=== PATIENT | female | born 1965 | race Caucasian/White ===

== ENCOUNTER 2023-12-22 22:31 | Observation (INO) | payer OTHER, SELFPAY ==
[2023-12-22] VITALS (9 sets, daily range): BP systolic 90–103; BP diastolic 57–67; BMI 18.0
--- NOTE | 2023-12-22 19:52 | ED.GENMED ---
History of Present Illness
General
Chief Complaint: Change Level of Consciousness
Source: patient and records
Exam Limitations: none
Time Seen by Provider: 12/22/23 19:32
Travel History
Have you had any contact with someone who has COVID-19?: Unable to Answer
Do you have any symptoms of coronavirus? Fever > 100 degrees, chills, cough, shortness of breath, sore throat, loss of taste or smell, muscle aches, or headache?: Unable to Answer
History of Present Illness
History of Present Illness:
This is a 58 year old female that is brought in by Ambulance from [facility] with change in mental status. Told that the patient has a fever yesterday and today the patient was more Lethargic. Records state that she was oriented X 1. Patient
denies any fever, chills, chest pain, SOB, abd pain, nausea, vomiting, diarrhea, headache, dizziness, urinary burning.
Past History
Past History
ED Past Medical History: GERD, Hypothyroidism, Psychiatric (Bipolar, Anxiety, Panic disorder) and Other (Wernickes Encephalopathy, Colitis, )
ED Past Surgical History: None
Social History
Tobacco: Non-smoker
Alcohol: None
Personal: Single
Living: prison
Review of Systems
Review of Systems
All Other Systems: ROS reviewed and negative except as documented in HPI and ROS
Constitutional: Reports no symptoms; Denies fever or chills
EENT: Reports no symptoms
Respiratory: Reports no symptoms; Denies cough or trouble breathing
Cardiac: Reports no symptoms; Denies chest pain
ABD/GI: Denies no symptoms, abdominal pain, nausea, vomiting or diarrhea
: Reports no symptoms; Denies dysuria, frequency or urgency
Musculoskeletal: Reports no symptoms
Skin: Reports no symptoms
Neurological: Reports other (Increased lethergy); Denies dizzy or headache
Psychiatric: Reports no symptoms
Phy Exam
General Physical Exam
General Presentation: no apparent distress
General age: appears older than age
General Skin: cool
General Habitus: debilitated
General Mental: alert (patient is alert and will answer questions at a whisper. Able to answer all questions when asked. Aware of being in the hospital)
General Hydration: dry mucous membranes
ENT Exam
ENT Exam: TM's normal, pharynx normal and neck supple
Eye Exam
Eye Exam: EOMI
Cardiovascular Exam
Cardiovascular Exam: regular rate/rhythm and normal peripheral pulses
Pulmonary Exam
Pulmonary Exam: lungs clear, no respiratory distress, no rales, chest non tender, no crackles, no rhonchi, no wheezing and no cough
Gastrointestinal Exam
Gastrointestinal Exam: normal bowel sounds, non tender, soft, no organomegaly, no pulsatile mass and non distended
Musculoskeletal Exam
Musculoskeletal Exam: edema (Slight lower leg edema Nonpitting) and other (Movements slow)
Skin Exam
Skin Exam: normal color, no rash, no petechia and other (Old bruising noted on the left knee and right upper thigh, Cool to touch)
Psychiatric Exam
Psychiatric Exam: other (Patient is awake and will answer questions at a whisper. Follows commands. )
Course
Orders/Labs/Results
Orders:
Orders
12/22/23 19:38
Electrocardiogram (*1) Urgent
Reason for Study: Other
Other Reason for Exam: Possible Sepsis
Cardiac Monitoring- Treatment ONCE
EKG- Treatment ONCE
IV Insert/Care/Rem.- Treatment PRN
CR Chest Portable - 1 View Urgent
Reason For Exam: suspected infection
12/22/23 19:42
COVID-19 Antigen Urgent
Source: Nasal Swab
Complete Blood Count/With Diff Urgent
Comprehensive Metabolic Panel Urgent
Lactic Acid Q4H
Comment: ON ICE, CANCEL 2ND ORDER IF FIRST LACTIC ACID LEVEL <2
Blood Culture Q30M
HALLE Source: Blood/Venous
Specimen Description:
Comment: FROM 2 SEPARATE SITES
Blood Culture Q30M
HALLE Source: Blood/Venous
Specimen Description:
Comment: FROM 2 SEPARATE SITES
INF RAPID [Influenza A+B Rapid Molecular] Urgent
HALLE Source: Nasal Swab
Specimen Description:
12/22/23 19:49
CT Head W/o Iv Contrast Urgent
Comment:
Reason For Exam: cHANGE IN MENTAL STATUS
12/22/23 19:50
Add On- LAB Urgent
Tests Added?: THIAMINE LEVEL
12/22/23 20:01
Urinalysis Reflex To Culture Urgent
Date Specimen was Collected: 12/22/23
Time Specimen was Collected: 19:59
Urine Microscopic Reflex Cult Urgent
Urine Culture Urgent
HALLE Source: U
Specimen Description:
Date Specimen was Collected: 12/22/23
Time Specimen was Collected: 19:59
12/22/23 23:45
Lactic Acid Q4H
Comment: ON ICE, CANCEL 2ND ORDER IF FIRST LACTIC ACID LEVEL <2
Abnormal Lab Results
12/22/23 12/22/23
19:42 20:01
RBC 3.58 L 10^6/uL
(4.20-5.40)
Hgb 11.5 L g/dL
(12.0-16.0)
Hct 33.3 L %
(37.0-47.0)
MCH 32.1 H pg
(27.0-31.0)
Abs Immat Gran (auto) 0.1 H 10^3/uL
(0-0.05)
Absolute Monos (auto) 0.7 H 10^3/uL
(0.1-0.6)
Immature Gran % 1.9 H %
(0-0.5)
Monocytes % 10.4 H %
(1.7-9.3)
BUN 21 H mg/dl
(7-17)
Creatinine 0.4 L mg/dL
(0.6-1.0)
Total Protein 6.1 L g/dl
(6.3-8.2)
Albumin 3.2 L g/dl
(3.5-5.0)
Urine Ketones 1+ A
(Negative)
Urine Urobilinogen 3+ A
(Neg - 1+)
Leukocyte Esterase Rfl 2+ A
(Negative)
Urine WBC (Reflex) 50-60 A /HPF
(0-5)
Urine Bacteria (Reflex) Many A
(Negative)
12/22/23 19:42
12/22/23 19:42
H/H slightly low. Dehydration. Total protein low. Albumin slightly low. Urine positive for infection. Lactic acid normal at 0.7, COVID and Influenza negative.
Vital Signs
Initial and Last Documented VS:
Initial Vital Signs
Temp Pulse Resp Pulse Ox
97.6 F 69 18 95
12/22/23 19:06 12/22/23 19:06 12/22/23 19:06 12/22/23 19:06
Last Documented Vital Signs
Temp Pulse Resp BP Pulse Ox
97.5 F 71 14 99/63 97
12/22/23 20:02 12/22/23 20:00 12/22/23 20:00 12/22/23 20:00 12/22/23 20:05
MDM/Problems Addressed
Differential Diagnosis Includes:
COVID, Influenza. Dehydration. Wernicks encephalopathy
MDM/Problems Addressed:
This nasra 58 year old female that is sent in from [facility] with increased Lethergy. Told that the patient had a fever yesterday but none today but was more lethargic.
Will check labs, Urine, CT head, Give IV fluids
Chronic conditions affecting care:
Wernickes Encephaloopathy
Chronic conditions affecting care: Psychiatric illness
Acute Exacerbation and/or Progression of Chronic Illness: Psychiatric illness and Other (wernicks encephalopathy)
*Radiology
Radiology exam reviewed: radiology read reviewed (Ct HEAD-No acute intracranial abnormality Chest- Small left basilar opacity atelectasis versus mild Pneumonia. )
*Pulse Oximetry
Patient hypoxic: no
*Contract Post Office Clerk Interpretation
Rate: normal
Heart Rate: 70
Rhythm: sinus
*Critical Care Note
Total Time (30-74mins, 75-104mins- exclusive of procedures): Not Applicable
ED Attending Note
-
Portions of this chart may have been created with voice recognition software.� Occasional wrong word or��sound alike� substitutions may have occurred due to the inherent limitations of voice recognition software.
Discharge Plan
Departure
Patient Disposition: Admit
Date of Disposition: 12/22/23
Time of Disposition: 20:57
Admit to: Med/Surg
Presentation/result/management discussed w/ accepting MD/DO: Hospitalist
Patient with high blood pressure during this ER visit?: No
Condition: Good
Covid-19: Negative COVID-19
Discharge Problem:
UTI (urinary tract infection), Left lower lobe pneumonia, Change in mental status
Prescriptions:
No Action
sennosides [senna] 8.6 mg Tablet
8.6 mg PO HS
acetaminophen [Tylenol] 325 mg Tablet
650 mg PO Q4HPRN PRN (Reason: mild pain)
ondansetron HCl [Zofran] 4 mg Tablet
4 mg PO Q8HPRN PRN (Reason: nausea)
clonazepam 0.5 mg Tablet
0.75 mg PO TID
fluoxetine 10 mg Tablet
30 mg PO HS
thiamine HCl (vitamin B1) 100 mg Tablet
100 mg PO DAILY
folic acid 400 mcg Tablet
0.4 mg PO DAILY
carvedilol [Coreg] 3.125 mg Tablet
3.125 mg PO BID
levothyroxine [Synthroid] 25 mcg Tablet
25 mcg PO DAILY
risperidone [Risperdal] 2 mg Tablet
2 mg PO BID
magnesium hydroxide [Milk of Magnesia] 400 mg/5 mL Suspension
2,400 mg PO [id number] PRN (Reason: if no bm by 3rd day)
ascorbic acid (vitamin C) [Vitamin C] 500 mg Tablet
500 mg PO DAILY
bisacodyl [Dulcolax (bisacodyl)] 10 mg Suppository
10 mg AL DAILYPRN PRN (Reason: if no bm aftr mom)
ferrous sulfate 325 mg (65 mg iron) Tablet
325 mg PO DAILY
Fleet Enema 19-7 gram/118 mL Enema
118 ml AL DAILYPRN PRN (Reason: if no bm aftr dulcalox)
docusate sodium [Colace] 100 mg Capsule
200 mg PO HS
lorazepam 1 mg Tablet
1 mg PO Q6HPRN PRN (Reason: anxiety)
divalproex [Depakote Sprinkles] 125 mg Capsule, Delayed Rel Sprinkle
250 mg PO HS
divalproex [Depakote Sprinkles] 125 mg Capsule, Delayed Rel Sprinkle
500 mg PO DAILY
fludrocortisone 0.1 mg Tablet
0.2 mg PO DAILY
levetiracetam [Keppra] 100 mg/mL Solution
500 mg PO BID
melatonin 5 mg Tablet
5 mg PO HS
Icy Hot Pain Relieving 2.5 % Gel
1 applic TOPICAL Q6HPRN PRN (Reason: back)
pyridostigmine bromide 30 mg Tablet
30 mg PO BID
Interventions
Interventions:
*Risk Screen - Suicide Last Done: 12/22/23 19:06
*General Assessment Last Done: 12/22/23 19:06
*Neglect/Abuse Screening Last Done: 12/22/23 19:06
ED- Fall Risk Assessment Last Done: 12/22/23 20:29
*ED COVID-19 Vaccine History Last Done: 12/22/23 19:06
ED- Cardiac Assessment Last Done: 12/22/23 20:05
ED- Neurological Assessment Last Done: 12/22/23 20:05
ED-Psychological Assessment Last Done: 12/22/23 20:05
ED- Pulmonary Assessment Last Done: 12/22/23 20:05
[2023-12-22 19:54] LABS: % Basophils 0.9 % (0-2); % Eosinophils 1.1 % (0-6); % Immature Granulocytes 1.9 % (0-0.5); % Lymphocytes 28.3 % (20.5-51.1); % Monocytes 10.4 % (1.7-9.3); % Neutrophils 57.4 % (42.2-75.2); Absolute Basophils 0.1 10^3/uL (0-0.2); Absolute Eosinophils 0.1 10^3/uL (0-0.7); Absolute Immature Granulocytes 0.1 10^3/uL (0-0.05); Absolute Monocytes 0.7 10^3/uL (0.1-0.6); Hematocrit 33.3 % (37.0-47.0); Hemoglobin 11.5 g/dL (12.0-16.0); Mean Corp Hgb Conc. 34.5 g/dL (33.0-37.0); Mean Corpuscular Hgb 32.1 pg (27.0-31.0); Mean Platelet Volume 10.1 fL (7.4-10.4); Nucleated Red Blood Cells % 0 %; Platelet Count 251 10^3/uL (130-400); Red Blood Cell Count 3.58 10^6/uL (4.20-5.40); Red Cell Dist. Width 12.3 % (11.5-14.5)
[2023-12-22 20:13] LABS: COVID-19 Antigen Negative (Negative)
[2023-12-22 20:13] LABS: Urine Albumin Trace (Neg - Trace); Urine Bilirubin Negative (Negative); Urine Character Clear (Clear); Urine Color Yellow; Urine Glucose Negative (Negative); Urine Ketone 1+ (Negative); Urine Leukocyte 2+ (Negative); Urine Nitrite Negative (Negative); Urine Occult Blood Negative (Negative); Urine Urobilinogen 3+ (Neg - 1+)
[2023-12-22 20:18] LABS: Lactic Acid 0.7 mmol/L (0.7-2.0)
[2023-12-22 20:33] LABS: ALT (SGPT) 20 U/L (0-35); AST (SGOT) 27 U/L (14-36); Albumin 3.2 g/dl (3.5-5.0); Alkaline Phosphatase 77 U/L (38-126); Blood Urea Nitrogen 21 mg/dl (7-17); Calcium 8.9 mg/dl (8.4-10.2); Carbon Dioxide 30 mmol/L (22-30); Chloride 107 mmol/L (98-107); Estimated Creatinine Clearance 77 ml/min; Glucose 83 mg/dl (70-99); Potassium 3.8 mmol/L (3.5-5.1); Sodium 137 mmol/L (135-145); Total Bilirubin 0.6 mg/dl (0.2-1.3); Total Protein 6.1 g/dl (6.3-8.2); eGFR > 60.00
[2023-12-22 20:38] LABS: Urine Bacteria Many (Negative); Urine Red Blood Cell 0-2 /HPF (0-2); Urine White Cell 50-60 /HPF (0-5)
[2023-12-22 20:39] LABS: Urine Squamous Cell 0-2 /LPF (Few)
[2023-12-22] MEDS: ROCEPHIN 1000 MG IV (21:17)
[2023-12-22] MEDS: NSS 1000 IV (21:21)
[2023-12-22] MEDS: ZITHROMAX INFUSION 250 IV (21:21)
--- NOTE | 2023-12-22 22:21 | HPS.HSE ---
Family Physician
-
Family Physician: NOT KNOW UNKNOWN - PT DOES
Chief Complaint
-
altered mental status
History of Present Illness
58-year-old female with past medical history of GERD, hypothyroidism, bipolar/anxiety/panic disorder, Wernicke's encephalopathy, presenting from [facility] for change in mental status. Apparently patient had a fever yesterday and today she was
more lethargic. Records indicate she was oriented x 1. Patient denies any fevers or chills, chest pain, shortness of breath abdominal pain, nausea vomiting or diarrhea, headache, dizziness or urinary symptoms. History is obtained from patient's
.
At baseline patient cannot communicate verbally due to Wernicke's encephalopathy. She can follow commands, left and nod yes or no and groan.
Patient normally eats a pur�ed diet.
Medical History
Past Medical History
Past Medical History: Reports Other (GERD, hypothyroidism, bipolar/anxiety/panic disorder, Wernicke's encephalopathy)
Past Surgical History: Reports None
Social History
Tobacco: Non-smoker
Alcohol: None
Drug: None
Family History
Family History: Not pertinent
Allergies / Home Medications
Allergies reflects when Allergies were last updated in [employer].
Home Medications with original date entered in [employer] [facility]
Allergy/Medication List:
Allergies
Allergy/AdvReac Type Severity Reaction Status Date / Time
epinephrine Allergy Unknown Verified 12/22/23 19:20
meperidine Allergy Unknown Verified 12/22/23 19:20
NSAIDS (Non-Steroidal Allergy Unknown Verified 12/22/23 19:20
Anti-Inflamma
Penicillins Allergy Unknown Verified 12/22/23 19:20
Home Medications
acetaminophen 325 mg tablet (Tylenol) 650 mg PO Q4HPRN PRN mild pain 12/22/23
ascorbic acid (vitamin C) 500 mg tablet (Vitamin C) 500 mg PO DAILY 12/22/23
bisacodyl 10 mg rectal suppository (Dulcolax (bisacodyl)) 10 mg AL DAILYPRN PRN if no bm aftr mom 12/22/23
carvedilol 3.125 mg tablet (Coreg) 3.125 mg PO BID 12/22/23
clonazepam 0.5 mg tablet 0.75 mg PO TID 12/22/23
divalproex 125 mg capsule,delayed release sprinkle (Depakote Sprinkles) 250 mg PO HS 12/22/23
divalproex 125 mg capsule,delayed release sprinkle (Depakote Sprinkles) 500 mg PO DAILY 12/22/23
docusate sodium 100 mg capsule (Colace) 200 mg PO HS 12/22/23
ferrous sulfate 325 mg (65 mg iron) tablet 325 mg PO DAILY 12/22/23
fludrocortisone 0.1 mg tablet 0.2 mg PO DAILY 12/22/23
fluoxetine 10 mg tablet 30 mg PO HS 12/22/23
folic acid 400 mcg tablet 0.4 mg PO DAILY 12/22/23
levetiracetam 100 mg/mL oral solution (Keppra) 500 mg PO BID 12/22/23
levothyroxine 25 mcg tablet (Synthroid) 25 mcg PO DAILY 12/22/23
lorazepam 1 mg tablet 1 mg PO Q6HPRN PRN anxiety 12/22/23
magnesium hydroxide 400 mg/5 mL oral suspension (Milk of Magnesia) 2,400 mg PO [id number] PRN if no bm by 3rd day 12/22/23
melatonin 5 mg tablet 5 mg PO HS 12/22/23
menthol 2.5 % topical gel (Icy Hot Pain Relieving) 1 applic topical Q6HPRN PRN back 12/22/23
ondansetron HCl 4 mg tablet 4 mg PO Q8HPRN PRN nausea 12/22/23
pyridostigmine bromide 30 mg tablet 30 mg PO BID 12/22/23
risperidone 2 mg tablet (Risperdal) 2 mg PO BID 12/22/23
sennosides 8.6 mg tablet (senna) 8.6 mg PO HS 12/22/23
sodium phosphates 19 gram-7 gram/118 mL enema (Fleet Enema) 118 ml AL DAILYPRN PRN if no bm aftr dulcalox 12/22/23
thiamine HCl (vitamin B1) 100 mg tablet 100 mg PO DAILY 12/22/23
Review of Systems
-
History Source: Patient
A 12 point ROS was completed and negative except as noted: Yes
Constitutional: Reports No Symptoms
EENT: Reports No Symptoms
Respiratory: Reports No Symptoms
Cardiac: Reports No Symptoms
Abdomen/GI: Reports No Symptoms
: Reports No Symptoms
Musculoskeletal: Reports No Symptoms
Skin: Reports No Symptoms
Neurological: Reports No Symptoms
Endocrine: Reports No Symptoms
Hematologic/Lymphatic: Reports No Symptoms
Psych: Reports No Symptoms
Physical Exam
Vital Signs
Vital Signs
Temp Pulse Resp BP Pulse Ox
97.5 F 65 13 95/66 97
12/22/23 20:02 12/22/23 21:15 12/22/23 21:15 12/22/23 21:00 12/22/23 21:15
Physical Exam
General: Well Developed, Well Nourished and No Apparent Distress
HEENT: NormoCephalic, Moist mucous membranes and Atraumatic
Respiratory: Clear
Cardiac: S1/S2 and Regular Rhythm; No Murmur or Rub
GI: Soft, Non Tender, Non Distended and Normal Bowel Sounds; No Organomegaly
Rectal: Deferred by Provider
Musculoskeletal: No Clubbing, No Cyanosis and No Edema
Skin: No Rash
Neuro: Nonfocal/grossly intact
Laboratory Results
-
12/22/23 19:42
12/22/23 19:42
Laboratory Results
Lactic Acid 0.7 mmol/L (0.7-2.0) 12/22/23 19:42
Total Bilirubin 0.6 mg/dl (0.2-1.3) 12/22/23 19:42
AST 27 U/L (14-36) 12/22/23 19:42
ALT 20 U/L (0-35) 12/22/23 19:42
Alkaline Phosphatase 77 U/L (38-126) 12/22/23 19:42
Data Reviewed
-
Lab Data: Labs Reviewed by me
Old Records: Reviewed
Impression/Plan
-
IMPRESSION:
PLAN:
# Metabolic encephalopathy secondary to UTI versus possible small left basilar pneumonia
-Urinalysis showed 50-60 WBC, many urine bacteria, plus leukocyte esterase
-COVID and influenza negative
-Chest x-ray shows small left basilar pneumonia versus atelectasis
-IV fluids
-Ceftriaxone/doxycycline
-Hold benzodiazepines
Chronic Warnicke's encephalopathy
-Continue thiamine and folate
Bipolar/anxiety/panic disorder
-Hold clonazepam
-Continue Depakote
-Continue fluoxetine
-Continue Risperdal
Orthostatic hypotension
-Continue fludrocortisone
GERD
Hypothyroidism
-Continue levothyroxine
Constipation
-Continue bowel regimen
Unclear why patient takes Coreg
-Continue Coreg
-No known history of hypertension or heart disease
Unclear why patient takes Keppra
-Continue
-No seizure history
Unclear why patient on pyridostigmine
-Continue
-No known history of myasthenia gravis
Full code
DVT prophylaxis�heparin
Pur�ed diet when able
[2023-12-23] VITALS (29 sets, daily range): BP systolic 90–130; BP diastolic 56–84
[2023-12-23] MEDS: VIBRAMYCIN 260 MG IV ×2 (00:38→12:21)
[2023-12-23] MEDS: NSS 1000 IV ×2 (00:38→17:20)
[2023-12-23 05:39] LABS: % Basophils 0.6 % (0-2); % Eosinophils 1.2 % (0-6); % Immature Granulocytes 1.9 % (0-0.5); % Lymphocytes 16.1 % (20.5-51.1); % Monocytes 12.2 % (1.7-9.3); Absolute Eosinophils 0.1 10^3/uL (0-0.7); Absolute Immature Granulocytes 0.1 10^3/uL (0-0.05); Absolute Lymphocytes 1.1 10^3/uL (1.2-3.4); Absolute Monocytes 0.8 10^3/uL (0.1-0.6); Absolute Neutrophils 4.6 10^3/uL (1.4-6.5); Hematocrit 30.3 % (37.0-47.0); Hemoglobin 10.5 g/dL (12.0-16.0); Mean Corp Hgb Conc. 34.7 g/dL (33.0-37.0); Mean Corpuscular Hgb 32.4 pg (27.0-31.0); Mean Corpuscular Volume 93.5 fL (81.0-99.0); Mean Platelet Volume 10.2 fL (7.4-10.4); Nucleated Red Blood Cells % 0 %; Platelet Count 204 10^3/uL (130-400); Red Blood Cell Count 3.24 10^6/uL (4.20-5.40); Red Cell Dist. Width 12.2 % (11.5-14.5); White Blood Cell Count 6.7 10^3/uL (4.8-10.8)
[2023-12-23 05:52] LABS: ALT (SGPT) 19 U/L (0-35); AST (SGOT) 28 U/L (14-36); Albumin 2.5 g/dl (3.5-5.0); Alkaline Phosphatase 63 U/L (38-126); Blood Urea Nitrogen 15 mg/dl (7-17); Carbon Dioxide 23 mmol/L (22-30); Chloride 109 mmol/L (98-107); Estimated Creatinine Clearance 77 ml/min; Glucose 75 mg/dl (70-99); Potassium 3.3 mmol/L (3.5-5.1); Sodium 140 mmol/L (135-145); Total Bilirubin 0.6 mg/dl (0.2-1.3); Total Protein 5.1 g/dl (6.3-8.2); eGFR > 60.00
[2023-12-23] MEDS: SYNTHROID PO (06:51)
--- NOTE | 2023-12-23 07:35 | W.PN.HOSP.TC ---
Today's Communication/Plan
-
see A/P
Assessment / Plan
Assessment / Plan
58-year-old female with past medical history of GERD, hypothyroidism, bipolar/anxiety/panic disorder, Wernicke's encephalopathy, presented from [facility] for change in mental status.�
Apparently patient had a fever and was more lethargic.�Records indicated she was oriented x 1.�History is obtained from patient's .
At baseline, patient cannot communicate verbally due to Wernicke's encephalopathy.�She can follow commands, nod yes or no and groan.
Patient normally eats a pur�ed diet.
A/P:
# Metabolic encephalopathy secondary to UTI versus possible small left basilar pneumonia
MS improved and back to baseline, awake, nod but not conversant
UA dirty, follow urine Cx, blood Cx
Chest x-ray shows small left basilar pneumonia versus atelectasis
COVID and influenza negative
Follow MRSA screen
s/p IV fluids
Cont Ceftriaxone/doxycycline
Hold benzodiazepines
SPL eval, cont CONCRETE PIPE PLANT SUPERVISOR Pureed diet
# Chronic Wernicke's encephalopathy
Continue thiamine and folate
# Bipolar/anxiety/panic disorder
Hold clonazepam
Continue Depakote
Continue fluoxetine
Continue Risperdal
# Orthostatic hypotension
Continue fludrocortisone
# GERD
# Hypothyroidism
Continue levothyroxine
# Constipation
Continue bowel regimen
# Unclear why patient takes Coreg
Continue Coreg with hold parameter
?history of hypertension or heart disease
# Unclear why patient takes Keppra
Continue
?seizure history
# Unclear why patient on pyridostigmine
Continue
?history of myasthenia gravis
# Hypokalemia
replete K
check Mag level
Full code
DVT prophylaxis�heparin SQ
Pur�ed diet when able
Anticipated Discharge: 24 - 48 hours
Subjective/Interval History
-
Date of Service: December 23, 2023
Objective Data
-
Labs:
Laboratory Results
12/22/23 12/23/23
19:42 05:24
WBC 7.0 6.7
Hgb 11.5 L 10.5 L
Hct 33.3 L 30.3 L
Plt Count 251 204
Sodium 137 140
Potassium 3.8 3.3 L
Chloride 107 109 H
Carbon Dioxide 30 23
BUN 21 H 15
Creatinine 0.4 L 0.3 L
Glucose 83 75
Calcium 8.9 8.0 L
Total Bilirubin 0.6 0.6
AST 27 28
ALT 20 19
Alkaline Phosphatase 77 63
Vital Signs:
Vital Signs
Temp Pulse Resp BP Pulse Ox
36.4 C 75 13 111/84 98
12/23/23 02:13 12/23/23 06:00 12/23/23 06:00 12/23/23 06:00 12/23/23 02:15
I&O
12/22/23 12/23/23 12/24/23
06:59 06:59 06:59
Intake Total 500 / 500
Balance 500 / 500
Review of Systems
-
Unable to obtain full review of systems at this time due to: Patient Non-verbal
Physical Exam
-
General: Well Developed, Well Nourished, No Apparent Distress and Comfortable; Negative Respiratory Distress or Conversant
HEENT: Normocephalic, Atraumatic, Nose Appears Normal and Ears Appear Normal; Negative Oxygen
Respiratory: Clear to Auscultation and Non Labored Respirations; Negative Accessory Resp Muscle Use
Cardiac: Regular Rhythm and S1/S2
GI: Soft, Nontender, Nondistended and Normal Bowel Sounds
Skin: Warm and Dry
Neuro: Awake
Psych: Calm
Data Reviewed
-
Diagnostic Radiology: Report Reviewed by me
Labs: Labs Reviewed by me
[2023-12-23] MEDS: KCL 270 MEQ IV (08:26)
[2023-12-23 08:39] LABS: Magnesium 1.8 mg/dl (1.6-2.3)
--- NOTE | 2023-12-23 10:35 | PTOTSP ---
Speech Language Pathology
Pt seen for clinical bedside swallow evaluation. P.O. trials of puree and honey-thick liquids provided. Pt actively accepted P.O. trials. Prolonged bolus formation and A-P transit with piecemeal deglutition and pocketing on L, which she was able
to clear independently with subsequent swallows. Initally taking liquids via cup (single and consecutive sips). Intermittent wet vocal quality noted with weak coughing episode x1. Then provided liquids via tsp. Decrease in frequency of wet vocal
quality, but still noted at times. No overt coughing. Unable to rule out aspiration. Also seen with meds. Trialed whole in puree with RN. Pocketed 2 out of approximately 10 meds. Able to eventually clear with multiple tsps of liquid and puree.
Recommend:
(1) IDDSI Level 4 (Puree) and Moderately Thick Liquids (Honey-thick)
(2) Aspiration precautions: sit upright, liquids via tsp only, slow rate, full supervision with assist as needed
(3) Meds whole in puree as able. Suspect crushed meds will cause diffuse oral residue
(4) Can consider VSE, although contractures may make positioning difficult
(5) SCHOOL BUSINESS MANAGER to continue to follow
[2023-12-23] MEDS: COREG 3.125 MG PO ×2 (10:53→20:44)
[2023-12-23] MEDS: DEPAKOTE SPRINKLE 500 MG PO (10:56)
[2023-12-23] MEDS: RISPERDAL 2 MG PO ×2 (10:56→20:44)
[2023-12-23] MEDS: KEPPRA 500 MG PO ×2 (10:56→20:41)
[2023-12-23] MEDS: VITAMIN C 500 MG PO (10:56)
[2023-12-23] MEDS: VITAMIN B1 100 MG PO (10:56)
[2023-12-23] MEDS: MESTINON 30 MG PO ×2 (10:56→20:42)
[2023-12-23] MEDS: FEOSOL 325 MG PO (10:58)
[2023-12-23] MEDS: FLORINEF 0.200000000000000011 MG PO (10:58)
[2023-12-23] MEDS: FOLVITE 0.400000000000000022 MG PO (10:58)
[2023-12-23 13:02] LABS: Procalcitonin < 0.05 ng/ml (0.0-0.25)
[2023-12-23] MEDS: LOVENOX 40 MG SC (17:36)
[2023-12-23] MEDS: STERILE WATER FOR INJECTION 10 ML IV (22:23)
[2023-12-23] MEDS: ROCEPHIN 1000 MG IV (22:23)
[2023-12-23] MEDS: PROZAC 30 MG PO (22:23)
[2023-12-23] MEDS: MELATONIN 5 MG PO (22:23)
[2023-12-23] MEDS: SENOKOT 8.59999999999999964 MG PO (22:24)
[2023-12-23] MEDS: COLACE 200 MG PO (22:24)
[2023-12-23] MEDS: DEPAKOTE SPRINKLE 250 MG PO (22:24)
[2023-12-24] MEDS: VIBRAMYCIN 260 MG IV (00:27)
[2023-12-24] MEDS: SYNTHROID 25 MCG PO (05:58)
[2023-12-24 08:00] LABS: Hematocrit 30.2 % (37.0-47.0); Hemoglobin 10.3 g/dL (12.0-16.0); Mean Corp Hgb Conc. 34.1 g/dL (33.0-37.0); Mean Corpuscular Hgb 32.1 pg (27.0-31.0); Mean Corpuscular Volume 94.1 fL (81.0-99.0); Mean Platelet Volume 10.5 fL (7.4-10.4); Platelet Count 220 10^3/uL (130-400); Red Blood Cell Count 3.21 10^6/uL (4.20-5.40); Red Cell Dist. Width 11.8 % (11.5-14.5); White Blood Cell Count 7.5 10^3/uL (4.8-10.8)
[2023-12-24 08:25] VITALS: BP 106/66
[2023-12-24 08:36] LABS: Blood Urea Nitrogen 8 mg/dl (7-17); Calcium 8.1 mg/dl (8.4-10.2); Carbon Dioxide 25 mmol/L (22-30); Chloride 106 mmol/L (98-107); Estimated Creatinine Clearance 77 ml/min; Glucose 87 mg/dl (70-99); Magnesium 1.6 mg/dl (1.6-2.3); Sodium 133 mmol/L (135-145); eGFR > 60.00
[2023-12-24] MEDS: MESTINON 30 MG PO ×2 (08:46→20:22)
[2023-12-24] MEDS: VITAMIN C 500 MG PO (08:47)
[2023-12-24] MEDS: DEPAKOTE SPRINKLE 500 MG PO (08:47)
[2023-12-24] MEDS: FOLVITE 0.400000000000000022 MG PO (08:47)
[2023-12-24] MEDS: VITAMIN B1 100 MG PO (08:47)
[2023-12-24] MEDS: FEOSOL 325 MG PO (08:47)
[2023-12-24] MEDS: KEPPRA 500 MG PO ×2 (08:47→20:22)
[2023-12-24] MEDS: COREG 3.125 MG PO ×2 (08:47→20:28)
[2023-12-24] MEDS: FLORINEF 0.200000000000000011 MG PO (08:47)
[2023-12-24] MEDS: RISPERDAL 2 MG PO ×2 (08:47→20:22)
[2023-12-24] MEDS: NSS 1000 IV (08:59)
--- NOTE | 2023-12-24 11:40 | PTOTSP ---
Speech Language Pathology
VIDEOFLUOROSCOPIC SWALLOWING EXAMINATION (VSE) completed. Overall, pt with mod-severe oral and mild-mod pharyngeal dysphagia. Some pentration/aspiration noted with thin liquids. Cough response to aspiration noted.
Recommend:
(1) IDDSI Level 4 (Puree) and Mildly Thick Liquids ([place]-thick)
(2) Aspiration precautions: sit upright, liquids via tsp or cup only, slow rate, full supervision with assist as needed
(3) Meds whole in puree as able. Suspect crushed meds will cause diffuse oral residue
(4) OCCUPATIONAL THERAPY PROFESSOR to continue to follow
--- NOTE | 2023-12-24 11:50 | W.PN.HOSP.TC ---
Today's Communication/Plan
-
see A/P
Assessment / Plan
Assessment / Plan
58-year-old female with past medical history of GERD, hypothyroidism, bipolar/anxiety/panic disorder, Wernicke's encephalopathy, presented from [facility] for change in mental status.�
Apparently patient had a fever and was more lethargic.�Records indicated she was oriented x 1.�History is obtained from patient's .
At baseline, patient cannot communicate verbally due to Wernicke's encephalopathy.�She can follow commands, nod yes or no and groan.
Patient normally eats a pur�ed diet.
A/P:
# Metabolic encephalopathy secondary to UTI
MS improved and back to baseline, awake, nod but not conversant
Follow urine Cx
blood Cx negative
CXR noted small left basilar pneumonia versus atelectasis, since procal negative, less likely CAP
COVID and influenza negative, MRSA screen negative
s/p IV fluids
Cont�Ceftriaxone
DC further doxycycline
Hold benzodiazepines
SPL eval, s/p VSE, cont SOIL FIELD TECHNICIAN Pureed diet with NTL
# Chronic Wernicke's encephalopathy
Continue thiamine and folate
# Bipolar/anxiety/panic disorder
Hold clonazepam
Continue Depakote
Continue fluoxetine
Continue Risperdal
# Orthostatic hypotension
Continue fludrocortisone
# GERD
# Hypothyroidism
Continue levothyroxine
# Constipation
Continue bowel regimen
# Unclear why patient takes Coreg
Continue Coreg with hold parameter
?history of hypertension or heart disease
# Unclear why patient takes Keppra
Continue
?seizure history
# Unclear why patient on pyridostigmine
Continue
?history of myasthenia gravis
# Hypokalemia
replete K
check Mag level
Full code
DVT prophylaxis�heparin SQ
Pur�ed diet when able
Anticipated Discharge: Within 24 hours
Subjective/Interval History
-
Date of Service: December 24, 2023
Objective Data
-
Labs:
Laboratory Results
12/24/23
07:22
WBC 7.5
Hgb 10.3 L
Hct 30.2 L
Plt Count 220
Sodium 133 L
Potassium 3.0 L
Chloride 106
Carbon Dioxide 25
BUN 8
Creatinine 0.5 L
Glucose 87
Calcium 8.1 L
Vital Signs:
Vital Signs
Temp Pulse Resp BP Pulse Ox
37.1 C 62 15 106/66 97
12/23/23 23:13 12/24/23 08:25 12/24/23 08:25 12/24/23 08:25 12/24/23 08:25
I&O
12/23/23 12/24/23 12/25/23
06:59 06:59 06:59
Intake Total 500 / 500 400 / 400
Balance 500 / 500 400 / 400
Review of Systems
-
Unable to obtain full review of systems at this time due to: Patient Non-verbal
Physical Exam
-
General: Well Developed, Well Nourished, No Apparent Distress and Comfortable; Negative Respiratory Distress or Conversant
HEENT: Normocephalic, Atraumatic, Nose Appears Normal and Ears Appear Normal; Negative Oxygen
Respiratory: Clear to Auscultation and Non Labored Respirations; Negative Accessory Resp Muscle Use
Cardiac: Regular Rhythm and S1/S2
GI: Soft, Nontender, Nondistended and Normal Bowel Sounds
Skin: Warm and Dry
Neuro: Awake
Psych: Calm
Data Reviewed
-
Diagnostic Radiology: Report Reviewed by me
Labs: Labs Reviewed by me
[2023-12-24 12:37] VITALS: BMI 18.0
[2023-12-24] MEDS: MAGNESIUM SULFATE 50 IV (13:59)
[2023-12-24] MEDS: KCL 270 MEQ IV (15:00)
[2023-12-24] MEDS: BenGay-Like 1 APPLIC TOPICAL (15:01)
[2023-12-24 15:34] VITALS: BP 117/69
--- NOTE | 2023-12-24 16:50 | PTCARENOTE ---
Bengay given at 1500 & Tylenol at 1650 for right knee pain. Patient feels better, cannot given give pain rating, but can verbalized pain is better.
[2023-12-24] MEDS: TYLENOL 650 MG PO (16:54)
[2023-12-24] MEDS: LOVENOX 40 MG SC (16:54)
[2023-12-24] MEDS: DEPAKOTE SPRINKLE 250 MG PO (20:28)
[2023-12-24] MEDS: SENOKOT 8.59999999999999964 MG PO (20:28)
[2023-12-24] MEDS: COLACE 200 MG PO (20:28)
[2023-12-24] MEDS: PROZAC 30 MG PO (20:29)
[2023-12-24] MEDS: MELATONIN 5 MG PO (20:29)
[2023-12-24] MEDS: ROCEPHIN 1000 MG IV (20:29)
[2023-12-24] MEDS: STERILE WATER FOR INJECTION 10 ML IV (20:30)
[2023-12-24 23:22] VITALS: BP 116/83
[2023-12-25 06:01] LABS: Hematocrit 29.1 % (37.0-47.0); Hemoglobin 10.1 g/dL (12.0-16.0); Mean Corp Hgb Conc. 34.7 g/dL (33.0-37.0); Mean Corpuscular Volume 92.1 fL (81.0-99.0); Mean Platelet Volume 10.4 fL (7.4-10.4); Platelet Count 232 10^3/uL (130-400); Red Blood Cell Count 3.16 10^6/uL (4.20-5.40); Red Cell Dist. Width 12.1 % (11.5-14.5); White Blood Cell Count 5.8 10^3/uL (4.8-10.8)
[2023-12-25] MEDS: SYNTHROID 25 MCG PO (06:34)
[2023-12-25 07:03] LABS: Blood Urea Nitrogen 13 mg/dl (7-17); Calcium 8.2 mg/dl (8.4-10.2); Carbon Dioxide 27 mmol/L (22-30); Chloride 104 mmol/L (98-107); Estimated Creatinine Clearance 77 ml/min; Glucose 87 mg/dl (70-99); Magnesium 2.2 mg/dl (1.6-2.3); Potassium 3.2 mmol/L (3.5-5.1); Sodium 137 mmol/L (135-145); eGFR > 60.00
[2023-12-25 07:54] VITALS: BP 107/69
--- NOTE | 2023-12-25 08:14 | CM ---
Addendum entered by Rosy Stratton 12/25/23 12:37:
patient is stable to return to [facility].spoke with alysia t [facility] and she confirmed bed availability.phone number to call report is [phone] and fax number is [phone].attending wants transport scheduled for 4:30 or 5pm.
Original Note:
met with patient and spoke with russell grajeda/ and jitendra.patient is a skilled nursing resident of [facility].she has been there met with patient at bedside and spoke with russell grajeda/ and jitendra.patient has been at [facility] as a lt resident
for over 3 years.she is total care and is non verrbal.she does nod her head to yes and no. payient is able to feed herself a pureed diet.spoke with alysia in adm at [facility] who does have a bed avaialble for patient when she she is stable to
returns.patient is adm with pna and uti on iv abx.father russell is very supportive and visits 3-4 times per week. i explained obs letter to father and he was not happy with an obs adm.
Plan is to return to [facility] when stable for discharge.
[2023-12-25] MEDS: KEPPRA 500 MG PO ×2 (08:24→21:00)
[2023-12-25] MEDS: MESTINON 30 MG PO ×2 (08:25→21:00)
[2023-12-25] MEDS: VITAMIN B1 100 MG PO (08:26)
[2023-12-25] MEDS: VITAMIN C 500 MG PO (08:26)
[2023-12-25] MEDS: FOLVITE 0.400000000000000022 MG PO (08:27)
[2023-12-25] MEDS: DEPAKOTE SPRINKLE 500 MG PO (08:27)
[2023-12-25] MEDS: RISPERDAL 2 MG PO ×2 (08:28→21:00)
[2023-12-25] MEDS: FEOSOL 325 MG PO (08:28)
[2023-12-25] MEDS: FLORINEF 0.200000000000000011 MG PO (08:30)
[2023-12-25] MEDS: COREG PO (08:39)
[2023-12-25 08:40] VITALS: BP 96/68
--- NOTE | 2023-12-25 11:25 | W.PN.HOSP.TC ---
Today's Communication/Plan
-
d/c
Assessment / Plan
Assessment / Plan
58-year-old female with past medical history of GERD, hypothyroidism, bipolar/anxiety/panic disorder, Wernicke's encephalopathy, presented from [facility] for change in mental status.�
Apparently patient had a fever and was more lethargic.�Records indicated she was oriented x 1.�History is obtained from patient's .
At baseline, patient cannot communicate verbally due to Wernicke's encephalopathy.�She can follow commands, nod yes or no and groan.
Patient normally eats a pur�ed diet.
Gen: NAD, appears chronically ill, NCAT
Neck: supple.
CV: RRR, +S1/S2, no m/r/g.
Resp: CTAB, no rales, wheezes, or rhonchi.
Abd: +BS, soft, NT, ND
Skin: No rashes.
Neuro: CN 2-12 intact, non-focal.
Acute metabolic encephalopathy:
-afebrile, no leukocytosis
-UTI now ruled out with NEG UCx, stop abx
-BCxs NGTD
-MS improved and back to baseline, awake, but not conversant
-CXR noted small left basilar pneumonia versus atelectasis, procal negative, bacterial pneumonia has been ruled out
-COVID and influenza negative, MRSA screen negative
-s/p IV fluids
-s/p VSE, cont [employer] Pureed diet with NTL
Other problems:
Chronic Wernicke's encephalopathy: Continue thiamine and folate
Bipolar/anxiety/panic disorder: Holding clonazepam, cont Depakote/fluoxetine/Risperdal
Orthostatic hypotension: Continue fludrocortisone
GERD
Hypothyroidism: cont levothyroxine
Constipation: Continue bowel regimen
Unclear why pt takes Coreg, stop based on BPs
Unclear why patient takes Keppra, cont
Unclear why patient on pyridostigmine, cont
Hypokalemia, 80meq PO K today
Hyponatremia, resolved
FULL/heparin
RN updated.
Medically cleared for d/c after K doses, case management aware.
Total time spent on d/c = 31 min. This included today's physical exam, progress note, review of laboratory and diagnostic data, preparation of discharge documents and prescriptions, and discussions about the pt's hospital course and discharge plan
with the patient and other medical laboratory technicians involved in the patient's care.
Anticipated Discharge: Today
Subjective/Interval History
-
Date of Service: December 25, 2023
Pt opens eyes to voice and, when asked how she's feeling, states 'too tired.'
Objective Data
-
Labs:
Laboratory Results
12/25/23
05:40
WBC 5.8
Hgb 10.1 L
Hct 29.1 L
Plt Count 232
Sodium 137
Potassium 3.2 L
Chloride 104
Carbon Dioxide 27
BUN 13
Creatinine 0.5 L
Glucose 87
Calcium 8.2 L
Vital Signs:
Vital Signs
Temp Pulse Resp BP Pulse Ox
98.0 F 77 16 96/68 96
12/25/23 07:54 12/25/23 08:40 12/25/23 07:54 12/25/23 08:40 12/25/23 09:40
I&O
12/24/23 12/25/23 12/26/23
06:59 06:59 06:59
Intake Total 400 / 400 1180 / 1180
Balance 400 / 400 1180 / 1180
[2023-12-25] MEDS: KCL ELIXIR 40 MEQ PO ×2 (11:56→15:03)
[2023-12-25 15:00] VITALS: BP 105/70
--- NOTE | 2023-12-25 16:17 | W.DCSUMMARY ---
Discharge Summary
Discharge Data
Date of Admission: 12/22/23
Date of Discharge: 12/25/23
-
Pending Results: No
Hospital Course
Primary diagnoses:
Acute metabolic encephalopathy
Secondary diagnoses:
Chronic Wernicke's encephalopathy:
Bipolar disorder
Anxiety
Panic disorder
Orthostatic hypotension
Gastroesophageal reflux disease
Hypothyroidism
Constipation
Hypokalemia
Hyponatremia
Consultants:
None
Imaging:
CT brain: No acute intracranial abnormality.
CXR: Small left basilar opacity, atelectasis versus mild pneumonia.
58-year-old female who presented with chief complaint of altered mental status as outlined in the H&P done on admission. Hospital course per problem list:
Acute metabolic encephalopathy: The patient was afebrile and had no leukocytosis during hospitalization. While hospitalized the patient's mental status improved back to baseline which is awake but nonconversant. Urinalysis on admission had pyuria
and there was concern for urinary tract infection. This was ruled out with a negative urine culture. The patient was on antibiotics which were stopped. Regarding the patient's chest x-ray above her procalcitonin was negative and bacterial
pneumonia was ruled out. COVID and influenza testing was negative. She received IV fluids. She had a video swallow study and speech therapy recommended pur�ed diet with nectar thick liquids. She was discharged in medically stable condition.
Discharge Plan
-
Patient Disposition: Halfway/SNF
Discharge Diagnosis/Procedures: Acute metabolic encephalopathy
Condition: Good
Diet: Other diet
Additional Diets: Pureed, NTL
Activity: With assistance
Driving Restrictions: No driving
Blood Work: BMP in 2 days, script from PCP
Referrals:
UNKNOWN - PT DOES,NOT KNOW [Family Provider] - in less than 1 week
Prescriptions:
Continued
sennosides [senna] 8.6 mg Tablet
8.6 mg PO HS
acetaminophen [Tylenol] 325 mg Tablet
650 mg PO Q4HPRN PRN (Reason: mild pain)
ondansetron HCl 4 mg Tablet
4 mg PO Q8HPRN PRN (Reason: nausea)
fluoxetine 10 mg Tablet
30 mg PO HS
thiamine HCl (vitamin B1) 100 mg Tablet
100 mg PO DAILY
folic acid 400 mcg Tablet
0.4 mg PO DAILY
levothyroxine [Synthroid] 25 mcg Tablet
25 mcg PO DAILY AT 0700
risperidone [Risperdal] 2 mg Tablet
2 mg PO BID
magnesium hydroxide [Milk of Magnesia] 400 mg/5 mL Suspension
2,400 mg PO [id number] PRN (Reason: if no bm by 3rd day)
ascorbic acid (vitamin C) [Vitamin C] 500 mg Tablet
500 mg PO DAILY
bisacodyl [Dulcolax (bisacodyl)] 10 mg Suppository
10 mg NV DAILYPRN PRN (Reason: if no bm aftr mom)
ferrous sulfate 325 mg (65 mg iron) Tablet
325 mg PO DAILY
Fleet Enema 19-7 gram/118 mL Enema
118 ml NV DAILYPRN PRN (Reason: if no bm aftr dulcalox)
docusate sodium [Colace] 100 mg Capsule
200 mg PO HS
divalproex [Depakote Sprinkles] 125 mg Capsule, Delayed Rel Sprinkle
250 mg PO HS
divalproex [Depakote Sprinkles] 125 mg Capsule, Delayed Rel Sprinkle
500 mg PO DAILY
fludrocortisone 0.1 mg Tablet
0.2 mg PO DAILY
levetiracetam [Keppra] 100 mg/mL Solution
500 mg PO BID
melatonin 5 mg Tablet
5 mg PO HS
Icy Hot Pain Relieving 2.5 % Gel
1 applic TOPICAL Q6HPRN PRN (Reason: back)
pyridostigmine bromide 30 mg Tablet
30 mg PO BID
Discontinued
clonazepam 0.5 mg Tablet
0.75 mg PO TID
carvedilol [Coreg] 3.125 mg Tablet
3.125 mg PO BID
lorazepam 1 mg Tablet
1 mg PO Q6HPRN PRN (Reason: anxiety)
Discharge Orders:
Discharge Patient (As Directed); Ordered 12/25/23
Ordered By: Lex Crespo
[2023-12-25] MEDS: LOVENOX 40 MG SC (17:07)
--- NOTE | 2023-12-25 20:06 | PTCARENOTE ---
Assumed care of patient from previous RN -- patient to be DCd at 1900pm this evening back to [facility]. Report given and IV removed by dayshift RN. Patient awake and alert, requesting to eat more of her dinner.
Acute Care transport delayed and is now to be picking patient up around 2100pm this evening - confirmed with Acute Care. Will provide evening medications to patient prior to D/C.
Call godfrey within reach, will monitor until pickup.
[2023-12-25] MEDS: DEPAKOTE SPRINKLE 250 MG PO (21:00)
[2023-12-25] MEDS: SENOKOT 8.59999999999999964 MG PO (21:00)
[2023-12-25] MEDS: PROZAC 30 MG PO (21:00)
[2023-12-25] MEDS: MELATONIN 5 MG PO (21:00)
[2023-12-25] MEDS: COLACE 200 MG PO (21:00)
--- NOTE | 2023-12-25 21:15 | PTCARENOTE ---
PM and evening medications administered to patient -- patient pockets medications even though they are crushed in puree -- patient needs frequent reminders to swallow. No coughing noted during intake. Still awaiting transport to [facility]. Will
monitor.
== END 2023-12-25 21:35 ==
LOC: 3 WEST ACU 22:31
PROVIDERS: Clinical Nurse Specialist Family Health; Internal Medicine; ADMITTING PHYSICIAN Hospitalist; ATTENDING PHYSICIAN Internal Medicine; EMERGENCY PHYSICIAN Emergency Medicine
DX: G93.41 Metabolic encephalopathy (principal); R41.82 Altered mental status, unspecified; R50.9 Fever, unspecified; R53.83 Other fatigue; E51.2 Wernicke's encephalopathy; K21.9 Gastro-esophageal reflux disease without esophagitis; E87.1 Hypo-osmolality and hyponatremia; E03.9 Hypothyroidism, unspecified; E87.6 Hypokalemia; F31.9 Bipolar disorder, unspecified; F41.0 Panic disorder [episodic paroxysmal anxiety]; I95.1 Orthostatic hypotension; K59.00 Constipation, unspecified; J98.11 Atelectasis; J18.9 Pneumonia, unspecified organism; Z79.890 Hormone replacement therapy; Z88.6 Allergy status to analgesic agent; Z88.5 Allergy status to narcotic agent; Z88.0 Allergy status to penicillin; Z88.8 Allergy status to other drugs, medicaments and biological substances; Z11.52 Encounter for screening for COVID-19
CPT/HCPCS: 51701; 70450; 71045; 74230; 80048; 80053; 81003; 81015; 83605; 83735; 84145; 85025; 85027; 87040; 87070; 87086; 87502; 87811; 92526; 92610; 92611; 93005; 96361; 96374; 96375; 99285; G0378